=== PATIENT | female | born 1985 | race Hispanic/Latino ===

== ENCOUNTER → 2023-12-14 | Emergency (ER) | payer BC ==
--- OUTSIDE RECORDS SUMMARY | 2023-12-14 08:31 | XMS REPORT | Continuity of Care Document ---
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 Role Phone [email or web address] Attending Clinician Unavaila ble [email or web address] Admitting Clinician Unavaila ble Payers Payer Name Policy Type Policy Number Effective Date Expirati on Date Source [place] [id number] 2022 00:00:00 [facility] [id number] 2018 00:00:00 2022 00:00:00 Encounters Start Date/Time End Date/Time Encounter Type Admission Type Attending Clinicians Care Facility Care Department Encounter ID Source 2023-04-14 00:00:00 2023-04-14 00:00:00 Outpatient [email or web address]_ Cooper_J PRIV PRIV [id number] [facility] 2023-04-12 00:00:00 2023-04-12 00:00:00 Outpatient [email or web address]_ Cooper_J PRIV PRIV [id number] [facility] 2023-04-06 00:00:00 2023-04-06 00:00:00 Outpatient [email or web address]_ Cooper_J PRIV PRIV [id number] [facility]
--- NOTE | 2023-12-14 08:58 | EDPHYS ---
Physician Documentation [facility] Name: Shabana Matthews Age: 38 yrs Sex: Female : 1985 Arrival Date: 12/14/2023 Time: 08:28 Bed 10 Private MD: Arley Duran ED Physician Jacqueline Quinn HPI: 12/14 08:55 This 38 yrs old Female presents to ER via Ambulatory with complaints of Cat sp3 Bite. 08:55 38-year-old female with no significant past medical history presents with left ankle sp3 scratches secondary to 2 cat bite during family pet scar manage at home. Mild superficial bite/lacerations noted on the left posterior heel. No abnormalities in neurovascular status and no tendon involvement noted. Review of systems otherwise negative for any other symptoms. This occurred just prior to arrival and all animals are vaccinated.. 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 - Social history:: Smoking status: Patient denies any tobacco usage or history of. ROS: 08:56 Constitutional: Negative for fever, chills, and weight loss, Eyes: Negative for injury, sp3 pain, redness, and discharge, ENT: Negative for injury, pain, and discharge, Neck: Negative for injury, pain, and swelling, Cardiovascular: Negative for chest pain, palpitations, and edema, Respiratory: Negative for shortness of breath, cough, wheezing, and pleuritic chest pain, Abdomen/GI: Negative for abdominal pain, nausea, vomiting, diarrhea, and constipation, Back: Negative for injury and pain, Neuro: Negative for headache, weakness, numbness, tingling, and seizure, Psych: Negative for depression, anxiety, suicide ideation, homicidal ideation, and hallucinations, Allergy/Immunology: Negative for hives, rash, and allergies, 08:56 All other systems are negative, Exam: 08:56 Constitutional: This is a well developed, well nourished patient who is awake, alert, sp3 and in no acute distress. Head/Face: Normocephalic, atraumatic. Chest/axilla: Normal chest wall appearance and motion. Nontender with no deformity. No lesions are appreciated. Cardiovascular: Regular rate and rhythm with a normal S1 and S2. No gallops, murmurs, or rubs. Normal PMI, no JVD. No pulse deficits. Respiratory: Lungs have equal breath sounds bilaterally, clear to auscultation and percussion. No rales, rhonchi or wheezes noted. No increased work of breathing, no retractions or nasal flaring. Abdomen/GI: Soft, non-tender, with normal bowel sounds. No distension or tympany. No guarding or rebound. No evidence of tenderness throughout. Neuro: Awake and alert, GCS 15, oriented to person, place, time, and situation. Cranial nerves II-XII grossly intact. Motor strength 5/5 in all extremities. Sensory grossly intact. Cerebellar exam normal. Normal gait. Psych: Awake, alert, with orientation to person, place and time. Behavior, mood, and affect are within normal limits. 08:56 Musculoskeletal/extremity: Left heel posterior with 3-4 superficial lacerations/puncture wounds with no significant swelling, bleeding or other abnormality. Patient is ambulatory without any difficulty. No tendon involvement.. Vital Signs: 08:34 BP 113 / 73; Pulse 95; Resp 15; Temp 97.9; Pulse Ox 100% ; Weight 68.04 kg; Height 5 jl7 ft. 5 in. ; Pain 1/10; 08:34 Body Mass Index 24.96 (68.04 kg, 165.1 cm) jl7 08:34 Pain Scale: Adult jl7 MDM: 08:45 Patient medically screened. sp3 08:56 Data reviewed: vital signs, nurses notes. ED course: Cat bite/scratch. Will place on sp3 Augmentin to prevent any infection. Further workup and/or evaluation by PCP as needed. No further indications for any other intervention in the ED. Patient is up-to-date on tetanus.. Administered Medications: No medications were administered Disposition Summary: 12/14/23 08:57 Discharge Ordered Notes: Location: Home sp3 Condition: Stable sp3 Diagnosis - Scratched by cat sp3 - Cat bite sp3 Followup: sp3 - With: Private Physician - When: Upon discharge from the Emergency Department - Reason: Continuance of care Discharge Instructions: - Discharge Summary Sheet sp3 - Animal Bite, Adult sp3 Forms: - Medication Reconciliation Form sp3 - Thank You Letter sp3 - Antibiotic Education sp3 - Prescription Opioid Use sp3 - Patient Portal Instructions sp3 - Leadership Thank You Letter sp3 Prescriptions: - Augmentin 875-125 mg Oral Tablet - take 1 tablet ORAL route every 12 hours for 10 days; 20 tablet; Refills: 0, sp3 Product Selection Permitted Signatures: Bindu Antunez RN RN jl7 Jacqueline Quinn MD MD sp3 Corrections: (The following items were deleted from the chart) 08:42 08:37 Home Meds: None; yehuda jl7
--- NOTE | 2023-12-14 08:58 | ER ---
Nurse's Notes [facility] Name: Shabana Matthews Age: 38 yrs Sex: Female : 1985 Arrival Date: 12/14/2023 Time: 08:28 Bed 10 Private MD: Arley Duran Diagnosis: Scratched by cat;Cat bite Presentation: 12/14 08:34 Chief complaint: Patient states: Cat bite to left ankle, got in between cat, dog and 7 door. Coronavirus screen: At this time, the client does not indicate any symptoms associated with coronavirus-19. Ebola Screen: No symptoms or risks identified at this time. Initial Sepsis Screen: Does the patient meet any 2 criteria? No. Patient's initial sepsis screen is negative. Does the patient have a suspected source of infection? No. Patient's initial sepsis screen is negative. Risk Assessment: Do you want to hurt yourself or someone else? Patient reports no desire to harm self or others. Onset of symptoms was December 14, 2023. 08:34 Method Of Arrival: Ambulatory [facility] 08:34 Acuity: LUKASZ 4 jl7 Triage Assessment: 08:37 Bite description: bite sustained to left Achilles is from animal, was sustained 30-60 jl7 minutes ago. by a cat, animal information: vaccination(s) is not up to date. General: Appears in no apparent distress. uncomfortable, Behavior is calm, cooperative, appropriate for age. Pain: Complains of pain in left Achilles Pain currently is 1 out of 10 on a pain scale. Neuro: Level of Consciousness is awake, alert, obeys commands, Oriented to person, place, time, situation. Cardiovascular: Patient's skin is warm and dry. Respiratory: Airway is patent Respiratory effort is even, unlabored, Respiratory pattern is regular, symmetrical. Derm: Skin is pink, warm \T\ dry. 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 - Social history:: Smoking status: Patient denies any tobacco usage or history of. Screenin:11 [facility] ED Fall Risk Assessment (Adult) Score/Fall Risk Level 0 - 2 = Low Risk jl7 Oriented to surroundings, Maintained a safe environment. Abuse screen: Denies threats or abuse. Denies injuries from another. Nutritional screening: No deficits noted. Tuberculosis screening: No symptoms or risk factors identified. Vital Signs: 08:34 BP 113 / 73; Pulse 95; Resp 15; Temp 97.9; Pulse Ox 100% ; Weight 68.04 kg; Height 5 jl7 ft. 5 in. ; Pain 12/01; 08:34 Body Mass Index 24.96 (68.04 kg, 165.1 cm) jl7 08:34 Pain Scale: Adult jl7 ED Course: 08:31 Patient arrived in ED. mr 08:31 Arley Duran is Private Physician. mr 08:37 Triage completed. jl7 08:37 Arm band placed on right wrist. jl7 08:43 Jacqueline Quinn MD is Attending Physician. sp3 09:11 Bindu Antunez RN is Primary Nurse. jl7 09:11 Patient has correct armband on for positive identification. Provided Education on: bite jl7 care. 09:11 No provider procedures requiring assistance completed. Patient did not have IV access jl7 during this emergency room visit. Administered Medications: No medications were administered Medication: 09:29 VIS not applicable for this client. jl7 Outcome: 08:57 Discharge ordered by . sp3 09:29 Discharged to home ambulatory, jl7 09:29 Condition: stable 09:29 Discharge instructions given to patient, Instructed on discharge instructions, follow up and referral plans. medication usage, wound care, Demonstrated understanding of instructions, follow-up care, medications, wound care, Prescriptions given X 1, 09:29 Patient left the ED. jl7 Signatures: Lanie White, Reg Reg mr Bindu nAtunez, ARMOND RN jl7 Jacqueline Quinn MD MD sp3 Corrections: (The following items were deleted from the chart) 08:42 08:37 Home Meds: None; jl7 jl7
[2023-12-14 10:50] VITALS: BP 113/73; TEMP 97.9; O2SAT 100
== END ==
LOC: ER 08:28
DX: S91.312A Laceration without foreign body, left foot, initial encounter (principal); W55.01XA Bitten by cat, initial encounter; W55.03XA Scratched by cat, initial encounter
CPT/HCPCS: 99283